=== PATIENT | female | born 1955 | race Caucasian/White ===

== ENCOUNTER 2016-07-08 15:00 | Emergency (ER) | payer MEDICARE, OTHER | END 2016-07-08 19:18 | disposition home or self-care (01) | LOC: D.ER 15:00 | DX: S52.122A Displaced fracture of head of left radius, initial encounter for closed fracture (principal); W19.XXXA Unspecified fall, initial encounter; Y93.89 Activity, other specified; Y92.012 Bathroom of single-family (private) house as the place of occurrence of the external cause; E27.1 Primary adrenocortical insufficiency; G47.30 Sleep apnea, unspecified; Q06.8 Other specified congenital malformations of spinal cord; E34.0 Carcinoid syndrome ==

== ENCOUNTER 2016-12-02 16:12 | Inpatient (IN) | payer MEDICARE, OTHER ==
[~2016-12-02] VITALS: Ht 167.6 cm; Wt 83.8 kg
[2016-12-02 16:57] LABS: BASOPHILS 1.1 % (0-2); EOSINOPHILS 2.4 % (0-7); HEMATOCRIT 36.3 % (36.0-48.0); HEMOGLOBIN 10.6 g/dL (12-16); LYMPHOCYTES 14.9 % (15-50); MCH 27.2 pg (26.0-34.0); MCHC 29.2 g/dL (31.0-37.0); MCV 93.3 fL (80.0-100.0); MEAN PLATELET VOLUME 9.2 fL (7.4-10.4); MONOCYTES 10.4 % (2-11); NEUTROPHILS 71.2 % (40-80); PLATELET COUNT 235 10x3/uL (130-400); RBC 3.89 10x6/uL (4.00-5.40); RDW 16.7 % (11.5-14.5); WBC 6.6 10x3/uL (4.8-10.8)
[2016-12-02 17:28] LABS: ALBUMIN 3.5 g/dL (3.4-5.0); ALKALINE PHOSPHATASE 117 U/L (46-116); ALT (SGPT) 29 U/L (10-68); CALC OSMOLALITY 281 mosm/kg (275-300); CALCIUM 8.7 mg/dL (8.5-10.1); CARBON DIOXIDE 37.4 mmol/L (21.0-32.0); CHLORIDE - SERUM 98 mmol/L (98-107); CREATININE - SERUM 0.8 mg/dL (0.6-1.3); GLUCOSE 105 mg/dL (74-106); POTASSIUM - SERUM 3.7 mmol/L (3.5-5.1); SODIUM 142 mmol/L (136-145); UREA NITROGEN 11 mg/dL (7-18); eGFR NON AFRICAN AMERICAN 77 mL/min (90-120)
[2016-12-03] MEDS ORDERED: NEURONTIN600 MG PO (02:34)
[2016-12-03] MEDS ORDERED: AMBIEN10 MG PO (02:34)
[2016-12-03 03:15] VITALS: Ht 167.6 cm; Wt 83.8 kg
--- NOTE | 2016-12-03 03:17 | NUR ---
TELE 79 SR
[2016-12-03 04:00] VITALS: BP 146/69
[2016-12-03] MEDS ORDERED: CORTEF10 MG PO (04:29)
[2016-12-03] MEDS ORDERED: CORTEF 5 MG TAB5 MG PO (04:29)
[2016-12-03] MEDS ORDERED: OXYCONTIN40 MG PO (04:36)
[2016-12-03] MEDS ORDERED: OXY IR30 MG PO (04:36)
[2016-12-03] MEDS ORDERED: XANAX0.5 MG PO (06:50)
[2016-12-03] MEDS ORDERED: LINZESS145 MCG PO (06:50)
[2016-12-03] MEDS ORDERED: SOMA350 MG PO (06:51)
[2016-12-03] MEDS ORDERED: CELEXA40 MG PO (06:53)
[2016-12-03] MEDS ORDERED: TENORMIN25 MG PO (06:53)
[2016-12-03] MEDS ORDERED: SYMBICORT 16010.2 GM INH (06:54)
[2016-12-03] MEDS ORDERED: PROAIR HFA8.5 GM INH (06:55)
[2016-12-03] MEDS ORDERED: OMEPRAZOLE40 MG PO (06:55)
[2016-12-03] MEDS ORDERED: SYNTHROID75 MCG PO (06:55)
[2016-12-03] MEDS ORDERED: ATROVENT HFA12.9 GM INH (06:56)
[2016-12-03 08:50] LABS: T4 THYROXIN - FREE 0.92 ng/dL (0.76-1.46); THYROID STIMULATING HORMONE 2.79 uIU/mL (0.36-3.74)
[2016-12-03 09:13] VITALS: BP 139/59
[2016-12-03 09:38] VITALS: BP 139/59; BP 169/79; BP 177/66
[2016-12-03 10:46] VITALS: BP 117/66
--- NOTE | 2016-12-03 12:45 | NUR ---
Patient Name: VERONICA ROBISON Admission Status: ER Accout number: [id number] Admission Date: 12-02-2016 : 1955 Admission Diagnosis: Attending: Andrzej Alfredo Current LOS: 1 Anticipated DC Date: 12-04-2016 Planned Disposition: Home Primary Insurance: MEDICARE A & B Discharge Planning Comments: CM MET WITH PATIENT REGARDING D/C NEEDS AND PLANS. PATIENT STATED SHE LIVES WITH HER SPOUSE (SHANNAN) AND HE WILL DRIVE HER HOME AT DISCHARGE. PATIENT STATED SHE HAS ONE STEP TO ENTER HOME AND NO STAIRS INSIDE. PATIENT STATED SHE IS INDEPENDENT WITH HER CARE AND HAS NO DME AT HOME. PATIENTS PCP IS DR. KRISHNA AND PHARMACY IS [facility] [address]. PATIENT STATED SHE WOULD CONSIDER HOME HEALTH IF DOCTOR THINKS SHE NEEDS IT AT DISCHARGE. CM WILL CONTINUE TO FOLLOW PATIENT WITH D/C NEEDS AND PLANS. PCP DR. Jordan KRISHNA ([place]) [facility] [address] [phone] SHANNAN (SPOUSE) [phone] Diamond Sander: Aleisha Hilton Is the patient Alert and Oriented? Yes 0 * How many steps to enter\exit or inside your home? 1 0 * PCP DR. Jordan KRISHNA 0 * Pharmacy [facility] [address] 0 * Preadmission Environment Home with Family 0 * ADLs Independent 0 * Equipment None 0 * List name and contact numbers for known caregivers / representatives who currently or will assist patient after discharge: SHANNAN (SPOUSE) [phone] * Community resources currently utilized None 0 * Additional services required to return to the preadmission environment? Yes 0 * Can the patient safely return to the preadmission environment? Yes 0 * Has this patient been hospitalized within the prior 30 days at any hospital? No 0 Grand Total: 0
[2016-12-03 16:37] VITALS: BP 140/63
--- NOTE | 2016-12-03 19:14 | NUR ---
CALLED MADI HUNTLEY ABOUT WRIST BRACE, SHE STATED SHE WOULD BRING IT UP
--- NOTE | 2016-12-03 19:50 | NUR ---
PATIENT RESTING IN BED AND REQUESTED HER EVENING MEDS. I INFORMED THE PATIENT THAT I WOULD GIVE HER MEDS AT APROX 2014, SHE WAS AGREEABLE. PATIENT DENIES OTHER NEEDS AT THIS TIME. BED IN LOWEST POSITION AND CALL LIGHT WITHIN REACH. ENCOURAGED THE PATIENT TO CALL IF SHE HAS OTHER NEEDS.
[2016-12-03 20:00] VITALS: BP 122/50
--- NOTE | 2016-12-04 00:25 | NUR ---
ONE OF THE PATIENT'S OXY IR WAS DROPPED ON THE FLOOR. THE PILL WAS WASTED AND ANOTHER WAS PULLED FROM THE PYXIS
--- NOTE | 2016-12-04 00:30 | NUR ---
SPOKE WITH LEXII, COLD HEADER IN REGARDS TO PATIENT'S BRACE. LEXII STATED THAT SHE LOOKED IN CENTRAL SUPPLY AND THERE ARE NO BRACES AVAILABLE. SHE LEFT A NOTE AND WE WILL FOLLOW UP IN THE AM.
[2016-12-04 04:00] VITALS: BP 111/46
[2016-12-04 05:16] LABS: BASOPHILS 0.6 % (0-2); EOSINOPHILS 4.4 % (0-7); HEMATOCRIT 34.1 % (36.0-48.0); HEMOGLOBIN 10.1 g/dL (12-16); LYMPHOCYTES 25.8 % (15-50); MCH 27.4 pg (26.0-34.0); MCHC 29.6 g/dL (31.0-37.0); MCV 92.7 fL (80.0-100.0); MEAN PLATELET VOLUME 9.9 fL (7.4-10.4); MONOCYTES 13.5 % (2-11); NEUTROPHILS 55.7 % (40-80); PLATELET COUNT 254 10x3/uL (130-400); RBC 3.68 10x6/uL (4.00-5.40); RDW 16.4 % (11.5-14.5)
[2016-12-04 05:17] LABS: WBC 4.8 10x3/uL (4.8-10.8)
[2016-12-04 05:41] LABS: % SATURATION 12 % (15-55); IRON 30 ug/dl (35-150); TOTAL IRON BIND CAPACITY 240 ug/dl (260-445); UNSAT IRON BIND CAPACITY 210 ug/dl (150-375)
[2016-12-04 06:05] LABS: ALBUMIN 2.9 g/dL (3.4-5.0); ALKALINE PHOSPHATASE 99 U/L (46-116); ALT (SGPT) 25 U/L (10-68); CALC OSMOLALITY 282 mosm/kg (275-300); CALCIUM 8.6 mg/dL (8.5-10.1); CARBON DIOXIDE 36.6 mmol/L (21.0-32.0); CHLORIDE - SERUM 102 mmol/L (98-107); CKMB 0.7 U/L (0.0-3.6); CREATINE KINASE 88 UL (21-215); CREATININE - SERUM 0.6 mg/dL (0.6-1.3); FERRITIN 33 ng/mL (3-244); GLUCOSE 99 mg/dL (74-106); MAGNESIUM - SERUM 2.1 mg/dL (1.8-2.4); POTASSIUM - SERUM 3.7 mmol/L (3.5-5.1); PRO BNP 368 pg/mL (0-125); SODIUM 143 mmol/L (136-145); TROPONIN-I < 0.017 ng/mL (0.000-0.060); eGFR NON AFRICAN AMERICAN > 90 mL/min (90-120)
[2016-12-04 06:09] LABS: UREA NITROGEN 8 mg/dL (7-18)
--- NOTE | 2016-12-04 07:40 | NUR ---
ASSESSMENT COMPLETE. IV TO R FA PATENT. NS INFUSING AT 50 CC/HR VIA PUMP. BRUISING AND SWELLING NOTED TO L HAND. MANAGER RECRUITMENT SHOWING SR 81 PER TECH. O2 3L NC IN USE. DENIES ANY NEEDS AT THIS TIME.
[2016-12-04 08:09] VITALS: BP 138/66
--- NOTE | 2016-12-04 08:41 | NUR ---
CM REASSESSMENT NOTE: PATIENT IS DISCHARGING HOME TODAY/SPOUSE DRIVING. [facility] DELIVERING PORTABLE O2 TO ROOM. PATIENT SIGNED THE TERRIE FORM FOR [facility] AND THEY HAVE BEEN NOTIFIED OF DISCHARGE. RENNY SERVED
--- NOTE | 2016-12-04 11:17 | NUR ---
WILL DISCHARGE HOME TODAY AFTER PORTABLE OXYGEN DELIVERED.
--- NOTE | 2016-12-04 12:16 | NUR ---
DISCHARGE TEACHING GIVEN TO PATIENT. SL REMOVED. CATHETER TIP INTACT. NURSING HOME ASSISTANT ADMINISTRATOR REMOVED. PORTABLE OXYGEN DELIVERED BY [facility]. BRACE IN USE TO L WRIST. WILL DC HOME WHEN RIDE AVAILABLE FROM .
--- NOTE | 2016-12-04 13:45 | NUR ---
DC'D HOME WITH FAMILY. ESCORTED TO VEHICLE BY VOLUNTEER VIA WC WITH BELONGINGS.
[2016-12-05 10:15] LABS: FOLATE (FOLIC ACID) - SERUM >20.0 ng/mL (>3.0)
--- NOTE | 2016-12-05 12:22 | EC ---
PATIENT:VERONICA ROBISON DATE OF SERVICE: 12/03/16 SEX: F MEDICAL RECORD: [id number] DATE OF : [birth year] LOCATION:[id number] AGE OF PATIENT: 61 ADMISSION DATE: 12/03/16 REFERRING PHYSICIAN: INTERPRETING PHYSICIAN: HANNAH ALEMAN MD ECHOCARDIOGRAM REPORT ECHO CHARGES 4 ECHO COMPLETE CLINICAL DIAGNOSIS: SYNCOPE ECHOCARDIOGRAPHIC MEASUREMENTS (adult normal given) AC root (d.<3.7cm) 3.0 cm LV Septum d (<1.2 cm> 1.4 cm Valve Excursion 1.6 cm LV Septum (systole) 1.6 cm Left Atria (s.<4.0cm> 3.2 cm LVPW d(<1.2cm) 1.3 cm RV (d.<2.3cm) 3.6 cm LVPW (sytole) 1.6 cm LV diastole(<5.6CM) 5.2 cm MV E-F(>70mm/sec) cm LV systole 3.1 cm LVOT Diameter 1.6 cm MV exc.(>10mm) 1.4 cm Est.ejection fraction (50-75%) % Pericardial Effusion N DOPPLER: LVIT cm/sec A 108 cm/sec E 116 cm/sec LA cm/sec RVSP 21 mmHg LVOT 112 cm/sec AOP1/2T m/s Asc. Ao 165 cm/sec RVOT cm/sec RA cm/sec PA cm/sec AV Gradient Peak 10.95mmHg AV Mean 4.37 mmHg AV Area 1.4 cm MV Gradient Peak 7.93 mmHg MV Mean 3.27 mmHg MV Area cm COMMENTS: Seat Maker: Nelda GAYLE Explosives Operator: 2 Dr. Livingston TAPE# PACS DATE OF SERVICE: 12/03/2016 Echocardiogram FINDINGS: 1. Left ventricular chamber size is within normal limits. Left ventricular systolic function is normal. Overall ejection fraction estimated at 65%. 2. Left atrium, right atrium and right ventricular chamber sizes are within normal limits. 3. Valvular structures have normal structure and motion. ECHOCARDIOGRAM REPORT [id number] VERONICA ROBISON 4. Doppler interrogation only reveals mild tricuspid regurgitation. No other valvular insufficiency or stenosis. Pulmonary systolic pressure is estimated at 21 mmHg. 5. No evidence of pericardial effusion or left ventricular thrombus. TRANSINT:[id number] Voice Confirmation ID: [id number] DOCUMENT ID: [id number] HANNAH ALEMAN MD at 1222 CC: [id number] DICTATION DATE: 12/03/16 154 BRAND MANAGER: 12/03/162058 DIS IN 12/04/16 [place] [id number] [place] [id number]
== END 2016-12-04 13:45 | disposition home health service (06) | DRG 315 ==
LOC: D.ER 16:12 → D.MS 23:13 → OBSVTIME 23:13 → D.MS 12-03 13:39
PROVIDERS: Emergency Medicine; ADMIT Family Medicine
DX: I95.9 Hypotension, unspecified (principal); E27.1 Primary adrenocortical insufficiency; R09.02 Hypoxemia; J44.9 Chronic obstructive pulmonary disease, unspecified; W19.XXXA Unspecified fall, initial encounter; K21.9 Gastro-esophageal reflux disease without esophagitis; G89.29 Other chronic pain; F32.9 Major depressive disorder, single episode, unspecified; F41.9 Anxiety disorder, unspecified; S60.819A Abrasion of unspecified wrist, initial encounter; D64.9 Anemia, unspecified